=== PATIENT | male | born 1950 | race Caucasian/White ===

== ENCOUNTER 2017-10-12 11:32 | Inpatient (IN) | payer MEDICARE, MEDICAID ==
[~2017-10-12] VITALS: Ht 180.3 cm; Wt 72.5 kg
[~2017-10-12 11:32] MED LIST: AMLO-512 PO; OLAN10TA3 PO
[2017-10-12] MEDS ORDERED: HALOPERIDOL 5 MG TABLET ONE (11:54)
[2017-10-12] MEDS ORDERED: LORazepam 2 MG TABLET ONE (11:54)
[2017-10-12] MEDS ORDERED: LORazepam 2 MG TABLET PO ONE (12:00)
[2017-10-12] MEDS ORDERED: HALOPERIDOL 5 MG TABLET PO ONE (12:00)
[2017-10-12 12:06] LABS: BASOPHILS % (AUTO) 0.2 % (0.0-2.0); EOSINOPHILS % (AUTO) 0.1 % (1.0-6.0); HEMATOCRIT 27.1 % (41-53); HEMOGLOBIN 9.6 g/dL (13.5-17.5); LYMPHOCYTES # (AUTO) 0.4 K/uL (1.0-4.8); LYMPHOCYTES % (AUTO) 2.9 % (22.0-44.0); MEAN CORPUSCULAR HEMOGLOBIN 29.6 pg (26.0-34.0); MEAN CORPUSCULAR HGB CONC 35.5 G/dL (31.0-37.0); MEAN CORPUSCULAR VOLUME 83 fL (80-100); MONOCYTES # (AUTO) 0.6 K/uL (0.1-1.0); NEUTROPHILS # (AUTO) 13.3 K/uL (1.8-7.7); PLATELET COUNT (AUTO) 245 K/uL (150-450); RED BLOOD CELL COUNT(AUTO) 3.25 MIL/uL (4.50-5.90); RED CELL DISTRIBUTION WIDTH 14.8 % (11.5-14.5)
[2017-10-12 12:12] LABS: NEUTROPHILS % (AUTO) 92.8 % (40.0-70.0)
[2017-10-12] MEDS ORDERED: DiphenhydrAMINE HCL 25 MG CAPSULE PO ONE (12:15)
[2017-10-12 12:26] LABS: ALANINE AMINOTRANSFERASE 19 U/L (12-78); ALBUMIN 3.3 g/dL (3.4-5.0); ALKALINE PHOSPHATASE 61 U/L (46-116); ANION GAP 12 mmol/L (8-16); ASPARTATE AMINOTRANSFERASE 30 U/L (15-37); BILIRUBIN,TOTAL 0.6 mg/dL (0.1-1.0); CARBON DIOXIDE 20 mmol/L (22-29); CHLORIDE 84 mmol/L (98-107); CREATININE 1.69 mg/dL (0.60-1.30); GLOMERULAR FILTR. RATE CALC 41 mL/min (>60); GLUCOSE,RANDOM 151 mg/dL (70-110); POTASSIUM 4.5 mmol/L (3.5-5.1); TOTAL PROTEIN, SERUM 5.9 g/dL (6.4-8.2); UREA NITROGEN, BLOOD 19 mg/dL (7-18)
[2017-10-12 12:28] LABS: SODIUM SERUM 116 mmol/L (136-145)
[2017-10-12 12:42] LABS: BILIRUBIN,URINE NEGATIVE (NEGATIVE); GLUCOSE, URINE (UA) NEGATIVE (NEGATIVE); KETONES,URINE NEGATIVE (NEGATIVE); LEUKOCYTE ESTERASE ,URINE LARGE (NEGATIVE); NITRATE,URINE NEGATIVE (NEGATIVE); OCCULT BLOOD,URINE TRACE (NEGATIVE); PH,URINE 7.5 (5.0-8.0); PROTEIN,URINE POS 1+ (NEGATIVE); UROBILINOGEN,URINE 0.2 mg/dL (<=1.0)
[2017-10-12 12:46] LABS: AMPHET/METH SCREEN,URINE NEGATIVE (NEGATIVE); BARBITURATE SCREEN, URINE NEGATIVE (NEGATIVE); BENZODIAZEPINES SCREEN,URINE NEGATIVE (NEGATIVE); CANNABINOID SCREEN,URINE NEGATIVE (NEGATIVE); COCAINE SCREEN,URINE NEGATIVE (NEGATIVE); METHADONE SCREEN, URINE NEGATIVE (NEGATIVE); OPIATE SCREEN,URINE NEGATIVE (NEGATIVE)
[2017-10-12 12:47] LABS: PHENCYCLIDINE SCREEN,URINE NEGATIVE (NEGATIVE)
[2017-10-12 12:49] LABS: APPEARANCE,URINE HAZY (CLEAR)
[2017-10-12] MEDS ORDERED: HYDR25TA84 PO (12:51)
[2017-10-12] MEDS ORDERED: DSS100 PO (12:51)
[2017-10-12] MEDS ORDERED: ENAL10TA2 PO (12:51)
[2017-10-12] MEDS ORDERED: BENZ1TAB10 PO (12:51)
[2017-10-12] MEDS ORDERED: CLOM50 PO (12:51)
[2017-10-12] MEDS ORDERED: TEMA15CA PO (12:51)
[2017-10-12 12:55] LABS: BACTERIA,URINE Moderate /HPF (None Seen); SQUAMOUS EPITHELIAL CELL,UR Few /LPF (None Seen); WBC,URINE 26-50 /HPF (0-5)
[2017-10-12] MEDS ORDERED: CefTRIAXone SODIUM 1 GM in DEXTROSE 5%-WATER 10 ML IV ONE (13:15)
[2017-10-12] MEDS ORDERED: SODIUM BICARBONATE 650 MG TABLET PO ONE (13:30)
[2017-10-12 13:36] LABS: OSMOLALITY 247 mOS/kg (270-310)
[2017-10-12 13:37] LABS: CREATININE,URINE RANDOM 60.8 mg/dL (30.0-125.0)
[2017-10-12] MEDS ORDERED: ACETAMINOPHEN 325 MG TABLET PO PRN ×2 (14:45→20:15)
[2017-10-12] MEDS ORDERED: 0.9% SODIUM CHLORIDE 10 ML SYRINGE IVP PRN (14:45)
[2017-10-12 16:30] VITALS: BP 143/85
[2017-10-12 19:49] VITALS: BP 114/74
[2017-10-12] MEDS ORDERED: ZOLPIDEM TARTRATE 5 MG TABLET PO PRN (20:15)
[2017-10-12] MEDS ORDERED: MORPHINE SULFATE 2 MG/ML SYRINGE IVP PRN (20:15)
[2017-10-12] MEDS ORDERED: BISACODYL 10 MG RECTAL RECTAL SUPPOSITORY PR PRN (20:15)
[2017-10-12] MEDS ORDERED: HYDROCODONE/ACETAMINOPHEN 5-325 MG TABLET PO PRN (20:15)
[2017-10-12] MEDS ORDERED: MAGNESIUM HYDROXIDE SUSPENSION 30 ML UDCUP PO PRN (20:15)
[2017-10-12] MEDS ORDERED: ONDANSETRON HCL 4 MG/2 ML VIAL IVP PRN (20:15)
[2017-10-12] MEDS: SODIUM CHLORIDE 1 GM TABLET PO SCH (21:09)
[2017-10-12] MEDS: DOCUSATE SODIUM 100 MG CAPSULE PO SCH (21:09)
[2017-10-12 21:20] LABS: CALCIUM, TOTAL 7.8 mg/dL (8.8-10.5); CREATININE 1.82 mg/dL (0.60-1.30); POTASSIUM 4.8 mmol/L (3.5-5.1)
[2017-10-12 23:37] VITALS: BP 101/60
[2017-10-13] MEDS: HEPARIN SODIUM,PORCINE 5,000 UNITS/ML VIAL SQ SCH ×3 (01:28→17:17)
[2017-10-13 05:13] VITALS: BP 132/76
[2017-10-13 07:12] VITALS: BP 120/78
[2017-10-13 07:15] LABS: CALCIUM, TOTAL 7.9 mg/dL (8.8-10.5); CREATININE 1.79 mg/dL (0.60-1.30); POTASSIUM 4.9 mmol/L (3.5-5.1)
[2017-10-13] MEDS: PANTOPRAZOLE SODIUM 40 MG DR TABLET PO SCH (08:13)
[2017-10-13] MEDS: DOCUSATE SODIUM 100 MG CAPSULE PO SCH ×2 (08:13→20:24)
[2017-10-13] MEDS: SODIUM CHLORIDE 1 GM TABLET PO SCH ×3 (08:13→20:24)
[2017-10-13 11:37] VITALS: BP 107/64
[2017-10-13] MEDS: CefTRIAXone SODIUM 1 GM in DEXTROSE 5%-WATER 10 ML IV SCH (13:44)
[2017-10-13 15:52] VITALS: BP 129/59
[2017-10-13 18:33] LABS: CREATININE,URINE RANDOM 20.5 mg/dL (30.0-125.0)
[2017-10-13 19:33] VITALS: BP 112/67
[2017-10-13 23:54] VITALS: BP 138/72
[2017-10-14] MEDS: HEPARIN SODIUM,PORCINE 5,000 UNITS/ML VIAL SQ SCH ×3 (00:01→16:00)
[2017-10-14 04:14] VITALS: BP 145/71
[2017-10-14 07:24] VITALS: BP 148/69
[2017-10-14] MEDS: DOCUSATE SODIUM 100 MG CAPSULE PO SCH ×2 (09:00→21:43)
[2017-10-14] MEDS: SODIUM CHLORIDE 1 GM TABLET PO SCH ×3 (09:46→21:43)
[2017-10-14] MEDS: PANTOPRAZOLE SODIUM 40 MG DR TABLET PO SCH (09:46)
[2017-10-14] MEDS: AmLODIPine BESYLATE 10 MG TABLET PO SCH (09:46)
[2017-10-14] MEDS: METOPROLOL TARTRATE 25 MG TABLET PO SCH ×2 (10:45→21:43)
[2017-10-14 10:56] VITALS: BP 135/91
[2017-10-14] MEDS: CefTRIAXone SODIUM 1 GM in DEXTROSE 5%-WATER 10 ML IV SCH (12:51)
[2017-10-14 15:31] VITALS: BP 154/92
[2017-10-14] MEDS ORDERED: DENTURE ADHESIVE 68 GM CREAM DT PRN (15:45)
[2017-10-14 16:27] LABS: BASOPHILS % (AUTO) 0.4 % (0.0-2.0); EOSINOPHILS % (AUTO) 0 % (1.0-6.0); HEMATOCRIT 28.4 % (41-53); HEMOGLOBIN 10.1 g/dL (13.5-17.5); LYMPHOCYTES # (AUTO) 0.9 K/uL (1.0-4.8); LYMPHOCYTES % (AUTO) 13.2 % (22.0-44.0); MEAN CORPUSCULAR HEMOGLOBIN 29.9 pg (26.0-34.0); MEAN CORPUSCULAR HGB CONC 35.4 G/dL (31.0-37.0); MEAN CORPUSCULAR VOLUME 84 fL (80-100); MONOCYTES # (AUTO) 0.8 K/uL (0.1-1.0); MONOCYTES % (AUTO) 12.7 % (2.0-9.0); NEUTROPHILS # (AUTO) 4.8 K/uL (1.8-7.7); NEUTROPHILS % (AUTO) 73.7 % (40.0-70.0); PLATELET COUNT (AUTO) 244 K/uL (150-450); RED BLOOD CELL COUNT(AUTO) 3.36 MIL/uL (4.50-5.90)
[2017-10-14 17:03] LABS: CALCIUM, TOTAL 8.3 mg/dL (8.8-10.5); CREATININE 1.9 mg/dL (0.60-1.30); POTASSIUM 4.8 mmol/L (3.5-5.1)
[2017-10-14] MEDS ORDERED: METO25 PO (17:34)
[2017-10-14] MEDS ORDERED: CEPH500 PO (17:34)
[2017-10-14 19:43] VITALS: BP 150/75
[2017-10-15 00:15] VITALS: BP 153/98
[2017-10-15 04:02] VITALS: BP 157/95
[2017-10-15 07:37] VITALS: BP 152/88
[2017-10-15] MEDS: SODIUM CHLORIDE 1 GM TABLET PO SCH (08:28)
[2017-10-15] MEDS: DOCUSATE SODIUM 100 MG CAPSULE PO SCH (08:28)
[2017-10-15] MEDS: HEPARIN SODIUM,PORCINE 5,000 UNITS/ML VIAL SQ SCH ×2 (08:28)
[2017-10-15] MEDS: METOPROLOL TARTRATE 25 MG TABLET PO SCH (08:28)
[2017-10-15] MEDS: AmLODIPine BESYLATE 10 MG TABLET PO SCH (08:29)
[2017-10-15] MEDS: PANTOPRAZOLE SODIUM 40 MG DR TABLET PO SCH (08:29)
== END 2017-10-15 10:20 | disposition home or self-care (01) | DRG 690 ==
LOC: EMS 11:39 → 5S 14:35 → UNDODISIN 15:55
PROVIDERS: ADMIT Internal Medicine; ATTEND Internal Medicine
DX: N39.0 Urinary tract infection, site not specified (principal); E87.1 Hypo-osmolality and hyponatremia; I10 Essential (primary) hypertension; E83.51 Hypocalcemia; F99 Mental disorder, not otherwise specified; F25.0 Schizoaffective disorder, bipolar type; F41.9 Anxiety disorder, unspecified; F31.9 Bipolar disorder, unspecified; I44.0 Atrioventricular block, first degree; N28.9 Disorder of kidney and ureter, unspecified; Z79.899 Other long term (current) drug therapy
CPT/HCPCS: 82570; 83930; 83935; 84295; 84300; 87086; 93005; 99285; G0480; J0696; J1644; J7060